=== PATIENT | female | born 1990 | race Caucasian/White ===

== ENCOUNTER 2018-11-12 14:19 | Emergency (ER) | payer SELFPAY, MEDICAID ==
[2018-11-12] MEDS: predniSONE 20 MG TAB PO (16:29)
[2018-11-12] MEDS: ALBUTEROL 0.083% (NEB) 2.5 MG/3 ML AMP HHN (16:54)
== END 2018-11-12 17:37 | disposition home or self-care (01) ==
LOC: FTE 14:19
DX: R05 Cough (principal); J45.901 Unspecified asthma with (acute) exacerbation
CPT/HCPCS: 94664; 99283-25